=== PATIENT | female | born 1995 | race Caucasian/White ===

== ENCOUNTER 2017-12-12 10:30 | Inpatient (IN) | payer OTHER ==
[~2017-12-12] VITALS: Ht 163 cm; Wt 61.2 kg
[2017-12-12] MEDS ORDERED: PREN1TAB80 PO (11:01)
[2017-12-12 11:02] VITALS: BP 113/78
[2017-12-12] MEDS ORDERED: RINGERS SOLUTION,LACTATED 1,000 ML IV PRN (14:54)
[2017-12-12] MEDS ORDERED: OXYTOCIN 30 UNITS/LACT RINGERS 500 ML IV ONE (14:54)
[2017-12-12] MEDS ORDERED: CITRIC ACID/SODIUM CITRATE 30 ML SOLUTION UDCUP PO PRN (15:00)
[2017-12-12] MEDS ORDERED: METOCLOPRAMIDE HCL 5 MG/ML 2 ML VIAL IVP PRN (15:00)
[2017-12-12] MEDS ORDERED: LIDOCAINE/PF 1% 30 ML VIAL INJ PRN (15:00)
[2017-12-12 15:25] LABS: BASOPHILS % (AUTO) 0.4 % (0.0-2.0); EOSINOPHILS % (AUTO) 0.1 % (1.0-6.0); HEMATOCRIT 37.7 % (36-46); HEMOGLOBIN 12.8 g/dL (12.0-16.0); LYMPHOCYTES # (AUTO) 1.9 K/uL (1.0-4.8); LYMPHOCYTES % (AUTO) 13.6 % (22.0-44.0); MEAN CORPUSCULAR HEMOGLOBIN 29.8 pg (26.0-34.0); MEAN CORPUSCULAR HGB CONC 33.9 G/dL (31.0-37.0); MEAN CORPUSCULAR VOLUME 88 fL (80-100); MONOCYTES # (AUTO) 0.6 K/uL (0.1-1.0); MONOCYTES % (AUTO) 4.5 % (2.0-9.0); NEUTROPHILS # (AUTO) 11.1 K/uL (1.8-7.7); NEUTROPHILS % (AUTO) 81.4 % (40.0-70.0); PLATELET COUNT (AUTO)-OB 305 K/uL (150-450); RED CELL DISTRIBUTION WIDTH 14.1 % (11.5-14.5)
[2017-12-12] MEDS: FentaNYL CITRATE-PF 100 MCG/2 ML VIAL IVP PRN ×2 (15:33→16:10)
[2017-12-12] MEDS: RINGERS SOLUTION,LACTATED 1,000 ML IV SCH ×3 (15:37→20:09)
[2017-12-12] MEDS ORDERED: LIDOCAINE/PF 2% 5 ML VIAL ONE (17:42)
[2017-12-12] MEDS ORDERED: ROPIVACAINE HCL/PF 0.2% 100 ML ED ONE (17:42)
[2017-12-12] MEDS ORDERED: ROPIVACAINE HCL/PF 0.2% 100 ML ED PRN (18:09)
[2017-12-12] MEDS ORDERED: ONDANSETRON HCL 4 MG/2 ML VIAL IVP PRN (18:15)
[2017-12-12] MEDS ORDERED: DiphenhydrAMINE HCL 50 MG/ML VIAL IVP PRN (18:15)
[2017-12-12] MEDS ORDERED: NALBUPHINE HCL 10 MG/ML VIAL IVP PRN (18:15)
[2017-12-12] MEDS ORDERED: OXYGEN THERAPY IH SCH (20:00)
[2017-12-12] MEDS ORDERED: CeFAZolin 2 GM/DEXTROSE 50 ML IV ONE (22:15)
[2017-12-12] MEDS ORDERED: ACETAMINOPHEN/CODEINE 300-30 MG TABLET PO PRN (23:30)
[2017-12-12] MEDS: LANOLIN 7 GM OINTMENT TP PRN (23:43)
[2017-12-12] MEDS: BENZOCAINE 20%/MENTHOL 56 GM SPRAY CANISTER TP PRN (23:43)
[2017-12-12] MEDS: ACETAMINOPHEN/CODEINE 300-30 MG TABLET PO PRN (23:43)
[2017-12-12] MEDS: GLYCERIN/WITCH HAZEL LEAF 40 PADS JAR TP PRN (23:43)
[2017-12-13] MEDS: IBUPROFEN 800 MG TABLET PO SCH ×4 (00:03→19:40)
[2017-12-13] MEDS: ACETAMINOPHEN/CODEINE 300-30 MG TABLET PO PRN ×2 (08:21→16:31)
[2017-12-13] MEDS: MAGNESIUM HYDROXIDE SUSPENSION 30 ML UDCUP PO SCH ×2 (09:44→21:20)
[2017-12-14] MEDS: IBUPROFEN 800 MG TABLET PO SCH ×2 (03:04→09:01)
[2017-12-14] MEDS ORDERED: ROPIVACAINE HCL/PF 0.2% 0 ML ED ONE (04:51)
[2017-12-14] MEDS ORDERED: FentaNYL CITRATE-PF 100 MCG/2 ML VIAL ONE (04:52)
[2017-12-14] MEDS ORDERED: BUPIVACAINE HCL/PF 0.25% 10 ML VIAL ONE (04:52)
[2017-12-14] MEDS: MAGNESIUM HYDROXIDE SUSPENSION 30 ML UDCUP PO SCH (09:01)
[2017-12-14] MEDS: BENZOCAINE 20%/MENTHOL 56 GM SPRAY CANISTER TP PRN (09:15)
[2017-12-14] MEDS: LANOLIN 7 GM OINTMENT TP PRN (09:15)
[2017-12-14] MEDS: GLYCERIN/WITCH HAZEL LEAF 40 PADS JAR TP PRN (09:15)
[2017-12-14] MEDS ORDERED: DSS100 PO (11:41)
[2017-12-14] MEDS ORDERED: FERR-89 PO (11:42)
[2017-12-14] MEDS ORDERED: IBUP-2070 PO (11:52)
== END 2017-12-14 13:25 | disposition home or self-care (01) | DRG 807 ==
LOC: 4S 10:30 → OBSVTOIN 10:30
PROVIDERS: ADMIT Obstetrics & Gynecology; ATTEND Obstetrics & Gynecology
PROC: 10D07Z6 Extraction of Products of Conception, Vacuum, Via Natural or Artificial Opening (ICD-10-PCS; principal; 2017-12-12)
PROC: 0UQMXZZ Repair Vulva, External Approach (ICD-10-PCS; 2017-12-12)
PROC: 3E0R3BZ Introduction of Anesthetic Agent into Spinal Canal, Percutaneous Approach (ICD-10-PCS; 2017-12-12)
PROC: 00HU33Z Insertion of Infusion Device into Spinal Canal, Percutaneous Approach (ICD-10-PCS; 2017-12-12)
DX: O76 Abnormality in fetal heart rate and rhythm complicating labor and delivery (principal); Z37.0 Single live birth; Z3A.40 40 weeks gestation of pregnancy; O71.82 Other specified trauma to perineum and vulva
CPT/HCPCS: 86850; 86900; 86901; 89060; 90686; J2590; J2795; J3010; J3490; J7120